=== PATIENT | female | born 1950 | race Caucasian/White ===

== ENCOUNTER → 2016-12-02 | Outpatient (CLI) | payer OTHER ==
--- NOTE | 2016-12-02 21:28 | DX ---
DEXA Bone Mineral Densitometry December 02, 2016 Clinical Indications: 66-year-old postmenopausal woman with history of back pain. Patient currently takes submental vitamin D. Baseline evaluation. Technique: Bone Mineral Densitometry (BMD) by Dual Energy X-Ray Absorptiometry (DEXA) was performed utilizing the [employer] scanner. The lumbar spine was evaluated in the AP projection. The bilat eral hips and left forearm were evaluated in the AP projection. Vertebral fracture assessment was al so performed. Comparison: None. AP Lumbar Spine: The L1, L2, and L3 vertebral bodies were evaluated. BMD: 1.304 gm/cm2. T-score: 1.0 SD. Z-score: 2.7 SD. AP Left Hip: Neck BMD: 0.867 gm/cm2. T-score: -1.2 SD. Z-score: 0.3 SD. AP Right Hip: Neck BMD: 0.848 gm/cm2. T-score: -1.4 SD. Z-score: 0.2 SD. AP Left Forearm, 11/22: BMD: 0.715 gm/cm2. T-score: -1.8 SD. Z-score: -0.5 SD. Vertebral Fracture Assessment: No significant fracture deformity. Multilevel degenerative disk and facet arthropathy artificially increases the BMD measurement. Conclusion: Considering the lowest measured site (left forearm), the patient has low bone mineral de nsity. The ten year risk for any major osteoporotic fracture is 11.1% and for a hip fracture is 1.2% . Any bone loss in this patient is probably related to aging or estrogen deficiency. Preferential d emineralization of the forearm raises the possibility of underlying hyperparathyroidism. To prevent osteoporosis and to promote bone density, consider the following recommendations: 1. Pursue a regular regimen of weightbearing and muscle-strengthening exercises in order to reduce t he risk of falls and fracture (as tolerated by the patient's general medical condition). 2. Ensure that total daily dietary calcium intake is maximized. 3. Check serum hydroxy vitamin D3 (normal >30ng/ml). 4. Ensure daily intake of vitamin D is 800 international units. 5. Consider follow up DEXA scan in two years to assess the rate of bone loss in this patient. 6. Consider excluding common secondary causes of bone loss. Laboratory evaluation might include CBC , TSH, calcium, phosphorous, albumin, creatinine, alkaline phosphatase, PTH, serum, electrophoresis ( SPEP or UPEP), antitissue transglutaminase antibody levels (celiac disease), and hydroxy vitamin D3, as well as a 24-hour urine calcium.
== END ==
LOC: FIMAGING 14:06
PROVIDERS: ATTEND Family Medicine
DX: M85.80 Other specified disorders of bone density and structure, unspecified site (principal); M54.9 Dorsalgia, unspecified; Z78.0 Asymptomatic menopausal state

== ENCOUNTER → 2017-12-21 | Outpatient (CLI) | payer OTHER, MEDICARE | LOC: FIMAGING 13:10 | PROVIDERS: ATTEND Family Medicine | DX: Z12.31 Encounter for screening mammogram for malignant neoplasm of breast (principal) ==

== ENCOUNTER → 2019-03-07 | Outpatient (CLI) | payer OTHER, MEDICARE | LOC: BMCIMAGING 10:33 | PROVIDERS: ATTEND Podiatrist Foot & Ankle Surgery | DX: M79.672 Pain in left foot (principal); M21.42 Flat foot [pes planus] (acquired), left foot ==

== ENCOUNTER → 2019-04-02 | Outpatient (CLI) | payer OTHER, MEDICARE | LOC: FIMAGING 09:15 | PROVIDERS: ATTEND Family Medicine | DX: Z12.31 Encounter for screening mammogram for malignant neoplasm of breast (principal) ==